=== PATIENT | female | born 1990 | race Asian ===

== ENCOUNTER 2019-12-18 11:58 | Emergency (ER) | payer BC ==
--- NOTE | 2019-12-18 12:14 | TELE ---
HPI Do you have fever,cough or shortness of breath?: No - General Reason For Visit: COVID/ANITBODY TESTING History Source: Patient Past History - Travel History Traveled outside of the country in the last 30 days: No Close contact w/someone who was outside of country & ill: No - Medical History Anemia: No Asthma: No Cancer: No Cardiac Disorders: No Hx Myocardial Infarction: No CVA: No COPD: No CHF: No DVT: No Dementia: No Diabetes: No Hx Glaucoma: No Dialysis: No GI Disorders: No Disorders: No HTN: No Hypercholesterolemia: No HIV: No Kidney Stones: No Liver Disease: No Psychiatric Problems: No Seizures: No Thyroid Disease: No Lung CA: No - Surgical History Abdominal Surgery: No Appendectomy: No Cardiac Surgery: No Cholecystectomy: No Gastric Stapling: No GI Surgery: No Lung Surgery: No Neurologic Surgery: No Orthopedic Surgery: No Review of Systems - Review of Systems Constitutional: No: Chills, Fever, Malaise, Night Sweats Respiratory: No: Cough, Shortness of Breath *Physical Exam - Physical Exam Respiratory/Chest: negative: Respiratory Distress Discharge Diagnosis at time of Disposition: Encounter for screening laboratory testing for COVID-19 virus - Referrals Follow-up Referral(s): Sami Mcclure MD [Primary Care Provider] - - Patient Instructions
== END 2019-12-18 12:15 | disposition home or self-care (01) ==
LOC: JVIRT 11:58
DX: Z11.59 Encounter for screening for other viral diseases (principal)
CPT/HCPCS: 36415; 86769; Q3014-GT; U0003